=== PATIENT | male | born 1985 | race Caucasian/White ===

== ENCOUNTER 2017-12-22 12:57 | Emergency (ER) | payer SELFPAY ==
[2017-12-22] VITALS (36 sets, daily range): BP systolic 86–157; BP diastolic 61–87; PULSE 74–130; RESP 8–36; TEMP 36.7; O2SAT 96–100
--- NOTE | 2017-12-22 13:10 | DI.RPTCT_ITS ---
SYMPTOM/DIAGNOSIS: CHEST PAIN CTA THORAX: CT angiography was performed with multi slice acquisition and multi planar and 3D reconstruction. No pulmonary emboli or aortic dissection is seen. The lungs appear clear. No mass, pulmonary nodules or adenopathy is seen. The visualized portions of the upper abdomen are unremarkable. There are no suspicious bony abnormalities. IMPRESSION: Negative chest CT. No evidence of pulmonary emboli or other acute abnormality.
--- NOTE | 2017-12-22 13:11 | ED.GENADUL ---
Disposition Clinical Impression: Chest pain Disposition: HOME Condition: Stable Instructions: Chest Pain (ED) Additional Instructions: follow up with your primary care provider within 1 week if symptoms continue if you have worsening pain or trouble breathing return to the emergency department for reevaluation Medical Decision Making - Lab Data Results reviewed for labs ordered during visit: Yes - EKG Data -: EKG Interpreted by Me EKG shows normal: sinus rhythm, axis, intervals, QRS complexes, ST-T waves Rate: tachycardia When compared to previous EKG there are: no significant change 12/22/17 13:16 repol of anterior leads, sinus tachycardia 12/22/17 16:30 2nd ekg shows no acute changes - Radiology Data Radiology results: report reviewed, image reviewed - Medical Decision Making pt here with symptoms that could be due to anxiety given he does appear anxious but has no hx of this and no recent stressors per pt. No findings to suggest endocarditis and no fevers or ivdu. No evidence of dvt on exam and no hypoxia or pain with deep breaths so doubt PE. EKG shows no acute ischemic findings and has no radiation of pain or pain with exertion so doubt acs. Given acute onset of symptoms and feeling lightheaded with the tachcyardia, will obtain cta to eval for dissection and also send troponin to eval for acs pt's labs unremarkable as is imaging. Remains stable and he feels better now though still has tingling in his shoulders per pt. Will obtain delta troponin, given heart score is 0 if second troponin is negative feel he is appropriate for outpatient management pt sleeping on reexam, no distress, awaiting repeat lab and ekg ekg and troponin unremarkable on repeat, remains asymptomatic. Advised f/u with pcp and return precautions given - Differential Diagnosis dissection, anxiety, pe, pericardial effusion History of Present Illness - General Chief complaint: Chest Pain Stated complaint: chest pain/sob /disoriented Time Seen by Provider: 12/22/17 12:58 Source: patient Mode of arrival: ambulatory Limitations: no limitations - History of Present Illness Initial comments: 32 yo male who denies chronic medical problems comes in with cc of feeling disoriented, numb in the arms and chest burning. He states this started while driving about an hour or so ago and denies having these symptoms before. He states he drinks occasionally and had two beers earlier today, denies drug use. He is noted to have tachycardia to 120 with no significant ischemic findings on ekg, no focal neuro deficits, no murmurs on exam or stigmata of endocarditis noted on hand or feet exam. Complaint: lightheaded Onset/Timin -: hour(s) Location: chest Radiation: non-radiation Severity scale (1-10): 2 Quality: burning Consistency: constant Improves with: none Worsens with: none Associated Symptoms: other (lightheaded) Treatments Prior to Arrival: none - Related Data Unknown [No Known Home Meds] 12/22/17 Allergies Allergy/AdvReac Type Severity Reaction Status Date / Time No Known Allergies Allergy Unverified 12/22/17 13:05 Review of Systems Constitutional: denies: chills, fever Respiratory: denies: shortness of breath Cardiovascular: chest pain, palpitations. denies: edema, syncope Gastrointestinal: denies: abdominal pain, nausea, vomiting Musculoskeletal: denies: back pain Skin: denies: rash Neurological: denies: headache Comment: All other systems reviewed and negative Past Medical History - Past Medical History Medical history: no medical history - Social History Alcohol use: occasionally Drug use: none General Exam - General Limitations: no limitations General appearance: alert, anxious - Head Head exam: Present: atraumatic - Eye Eye exam: Present: normal apperance - ENT ENT exam: Present: mucous membranes moist - Neck Neck exam: Present: normal inspection - Respiratory Respiratory exam: Present: normal lung sounds bilaterally. Absent: respiratory distress - Cardiovascular Cardiovascular Exam: Present: normal rhythm, tachycardia, normal heart sounds - GI/Abdominal GI/Abdominal exam: Present: soft. Absent: tenderness - Extremities Exam Extremities exam: Present: normal inspection. Absent: pedal edema, calf tenderness - Neurological Exam Neurological exam: Present: alert, oriented X3, normal gait. Absent: motor sensory deficit - Psychiatric Psychiatric exam: Present: anxious - Skin Skin exam: Present: warm Course Vital Signs - 24 hr 12/22/17 13:03 Temperature 98.1 F Pulse 128 H Respiratory 14 Rate Blood Pressure 157/87 Pulse Oximetry 100
[2017-12-22 13:21] LABS: Abs Immature Grans 0.02 k/cumm (0.0-0.09); Absolute Basophil Count 0.05 k/cumm (0.0-0.2); Absolute Eosinophil Count 0.32 k/cumm (0.0-0.7); Absolute Lymphocyte Count 1.82 k/cumm (1.2-3.4); Absolute Monocyte Count 1.19 k/cumm (0.11-0.7); Absolute Neutrophil Count 5.49 k/cumm (1.2-6.7); Basophils % 0.6; Eosinophils % 3.6; HCT 44.8 % (40.0-50.0); HGB 15.6 g/dL (13.5-17.5); Immature Grans % 0.2; Lymphocytes % 20.5; Mean Corp. HGB Concentration 34.8 g/dL (32.0-36.0); Mean Corpuscular Hemoglobin 33.7 pg (27.0-33.0); Mean Corpuscular Volume 96.8 fL (80-95); Mean Platelet Volume 9.1 fL (8.0-11.0); Monocytes % 13.4; Neutrophils % 61.7; Platelet Count 422 x1000/uL (130-400); RBC 4.63 m/cumm (4.50-6.00); RBC Distribution Width 13.9 % (11.8-14.1); White Blood Cell Count 8.89 k/cumm (4.4-10.8)
[2017-12-22] MEDS: LORazepam 2 MG/ML VIAL 0.5 MG IVP (13:21)
[2017-12-22] MEDS: Normal Saline 1,000 ML 1000 ML IV (13:22)
[2017-12-22 13:34] LABS: PTT Activated 25.4 sec (21.0-31.4); Prothrombin Time 9.5 sec (9.3-10.8)
[2017-12-22 13:41] LABS: ALT 39 U/L (12-78); AST 29 U/L (15-37); Albumin 4.2 g/dL (3.4-5.0); Alkaline Phosphatase 73 U/L (46-116); Anion Gap 13.2 mmol/L (3-11); BUN 11 mg/dL (7-18); Bilirubin, Total 0.4 mg/dL (0.2-1.0); CO2 26.8 mmol/L (21.0-32.0); CREATININE 0.96 mg/dL (0.70-1.30); Calcium 8.7 mg/dL (8.5-10.1); Chloride 102 mmol/L (98-107); Glucose 97 mg/dL (70-100); Magnesium 1.8 mg/dL (1.8-2.4); Sodium 142 mmol/L (136-145)
[2017-12-22 13:46] LABS: Troponin I < 0.02 ng/mL (0.00-0.06)
[2017-12-22] MEDS: Omnipaque 350 MG/ML 100 ML BTL IJ (14:00)
--- NOTE | 2017-12-22 14:07 | DI.VRAD_ITS ---
EXAM: CT Angiography Chest With Intravenous Contrast CLINICAL HISTORY: 32 years old, male; Pain; Chest pain; Other: SOB /disoriiented TECHNIQUE: Axial computed tomographic angiography images of the chest with intravenous contrast using pulmonary embolism protocol. All CT scans at this facility use at least one of these dose optimization techniques: automated exposure control; mA and/or kV adjustment per patient size (includes targeted exams where dose is matched to clinical indication); or iterative reconstruction. 3D reconstructed images were created and reviewed. Coronal and sagittal reformatted images were created and reviewed. COMPARISON: No relevant prior studies available. FINDINGS: No evidence of PE. No significant focal consolidation. No pleural effusion. No pneumothorax. No adenopathy. Unremarkable upper abdomen. No acute mediastinal or aortic abnormality. IMPRESSION: No specific etiology identified for the patient's symptoms. Dictated and Authenticated by: Gianni Mena MD. Ordering:MATTHEW HUMPHREY MD
[2017-12-22 16:08] LABS: Troponin I < 0.02 ng/mL (0.00-0.06)
== END 2017-12-22 16:36 | disposition home or self-care (01) ==
LOC: ER 02-16 21:31
PROVIDERS: Emergency Provider Emergency Medicine; PCP General Practice
DX: R07.9 Chest pain, unspecified (principal); R00.0 Tachycardia, unspecified
CPT/HCPCS: 36415; 71275; 80053; 93005; 96361; 96374; 99285; 83735; 84484; 85025; 85610; 85730; 93010; J2060; J3490

== ENCOUNTER 2018-08-11 08:15 | Emergency (ER) | payer SELFPAY ==
[2018-08-11 08:19] VITALS: BP 133/83; PULSE 112; RESP 18; TEMP 36.7; O2SAT 99
--- NOTE | 2018-08-11 08:27 | DI.RAD_ITS ---
SYMPTOM/DIAGNOSIS: LACERATION LEFT THUMB: Three views. No acute fracture or dislocation is seen. There is a skin defect seen at the lateral aspect of the distal thumb. No radiopaque foreign bodies are seen in the soft tissues. IMPRESSION: No acute fracture or dislocation.
--- NOTE | 2018-08-11 08:28 | W.ED.GENAD ---
Discharge Plan Disposition Patient Disposition: HOME Condition: Improving Discharge Details Chief Complaint: Laceration Clinical Impression: Laceration of left thumb Primary Care Provider: Leo Madison ED Provider: Jeffrey Arellano Home Meds and New Rx's Prescriptions: New cephalexin 500 mg capsule 500 mg PO TID 3 Days Qty: 9 RF: 0 No Action No Known Home Meds RF: 0 Discharge Instructions Instructions: Laceration (ED) Additional Instructions: For your abrasions may apply topical antibiotic with once daily dressing change and gentle cleansing with soap and water. Leave the dressing of the thumb in place for 1 week's time, then remove and use a Band-Aid for an additional 1 week. Return if you develop a fever, redness, discharge from the wound or any other acute concerns. Take antibiotics as prescribed. Tylenol and/or ibuprofen as needed for pain Medical Decision Making 33-year-old male who lacerated his left thumb on glass in the home last night. He placed a Band-Aid and slept through the night, presents for evaluation this morning. Tetanus is up-to-date. His distal two-point discrimination is normal. There is a large laceration to the palmar aspect of the left thumb. Patient given Ativan, IV Kefzol and ketorolac. Referred for Xray and no evidence of underlying bony injury or foreign body. Discussed options for repair and patient declined local anesthesia and suture repair for primary closure. Repaired with Steri-Strips and tissue adhesive and he understands this will heal by secondary intention. I feel it is somewhat contaminated and patient placed on 3 days of Keflex. He is stable for discharge at this time. HPI General Mode of arrival: ambulatory. Date/Time Provider Initiated Documentation: 08/11/18 08:17. Limitations to Documentation: no limitations. Information obtained by: patient. History of Present Illness 33 year old M presents to the emergency department with the chief complaint of Left thumb laceration at 1130 last night, no numbness or weakness, described as mild, Quality is described as aching and dull, and is localized to the left and upper extremity. Patient reports no radiation. Patient started experiencing this hour(s) No relieving factors improve symptom(s), No exacerbating factors reported . Patient notes no other symptoms.. Patient did receive the following treatments prior to arrival, other (Band-Aid. Tetanus up-to-date last year) Related Data Home Medications Medication Instructions Recorded Confirmed Unknown [No Known Home Meds] 12/22/17 08/11/18 cephalexin 500 mg PO TID 3 Days #9 cap 08/11/18 Previous Rx's Medication Instructions Recorded cephalexin 500 mg PO TID 3 Days #9 cap 08/11/18 Allergies Allergy/AdvReac Type Severity Reaction Status Date / Time No Known Allergies Allergy Unverified 08/11/18 08:23 General Stated Complaint: Laceration DUSTIN: 4 Review of Systems Review of Systems No numbness, tingling, weakness. 6 systems reviewed and otherwise neg [facility] Social History Smoking/Tobacco Use Status: Former Tobacco Use Drug use: Never Do you feel safe at home: Yes Do you feel safe in your relationship?: Yes Exam Narrative Exam Narrative: GEN: awake, alert, oriented 3. Pleasant, well groomed, interactive, and. HEAD: Normocephalic, atraumatic ENT: Mucous membranes moist, oropharynx unremarkable, External ear exam unremarkable EYES: PERRL, EOMI NECK: Full ROM, no TRUDY, no menigismus ABDOMEN: Soft, nontender, no mass. +Bowel sounds EXT: Full ROM, no edema, no rash. 2+ Rad pulse bilateral. Left volar forearm abrasion at the wrist. There is a laceration on the palmar aspect of the thumb through the full-thickness of the dermis. Left thumb has distal two-point discrimination intact at approximately 1 cm. Nailbed is intact. Motor is 5 out of 5 in the bilateral upper extremity and sensation is intact otherwise Neuro: Grossly normal neurologic exam, conversant, interactive. Psych: Speech fluent, thoughts congruent, affect anxious Course Vital Signs Temperature 36.7 C 08/11/18 08:19 Pulse 112 H 08/11/18 08:19 Respiratory Rate 18 08/11/18 08:19 Blood Pressure 133/83 08/11/18 08:19 Pulse Oximetry 99 08/11/18 08:19 Temperature 36.7 C 08/11/18 08:19 Temperature Source Temporal Artery Scan 08/11/18 08:19 Pulse 112 H 08/11/18 08:19 Respiratory Rate 18 08/11/18 08:19 Respiratory Effort Non-Labored 08/11/18 08:21 Blood Pressure 133/83 08/11/18 08:19 Blood Pressure Position Sitting 08/11/18 08:19 Pulse Oximetry 99 08/11/18 08:19 Oxygen Delivery Method Room Air 08/11/18 08:19 Oxygen Flow Rate 0 08/11/18 08:19 Pain Level 0 08/11/18 08:19
--- NOTE | 2018-08-11 08:31 | ED.GENADUL_ITS ---
Discharge Plan Disposition Patient Disposition: HOME Condition: Improving Discharge Details Chief Complaint: Laceration Clinical Impression: Laceration of left thumb Primary Care Provider: Leo Madison ED Provider: Jeffrey Arellano Home Meds and New Rx's Prescriptions: New cephalexin 500 mg capsule 500 mg PO TID 3 Days Qty: 9 RF: 0 No Action No Known Home Meds RF: 0 Discharge Instructions Instructions: Laceration (ED) Additional Instructions: For your abrasions may apply topical antibiotic with once daily dressing change and gentle cleansing with soap and water. Leave the dressing of the thumb in place for 1 week's time, then remove and use a Band-Aid for an additional 1 week. Return if you develop a fever, redness, discharge from the wound or any other acute concerns. Take antibiotics as prescribed. Tylenol and/or ibuprofen as needed for pain Medical Decision Making 33-year-old male who lacerated his left thumb on glass in the home last night. He placed a Band-Aid and slept through the night, presents for evaluation this morning. Tetanus is up-to-date. His distal two-point discrimination is normal. There is a large laceration to the palmar aspect of the left thumb. Patient given Ativan, IV Kefzol and ketorolac. Referred for Xray and no eviden ce of underlying bony injury or foreign body. Discussed options for repair and patient declined local anesthesia and suture repair for primary closure. Repaired with Steri-Strips and tissue adhesive and he understands this will heal by secondary intention. I feel it is somewhat contaminated and patient placed on 3 days of Keflex. He is stable for discharge at this time. HPI General Mode of arrival: ambulatory . Date/Time Provider Initiated Documentation: 08/11/18 08:17 . Limitations to Documentation: no limitations . Information obtained by: patient . History of Present Illness 33 year old M presents to the emergency department with the chief complaint of Left thumb laceration at 1130 last night, no numbness or weakness, described as mild, Quality is described as aching and dull, and is localized to the left and upper extremity. Patient reports no radiation. Patient started experiencing this hour(s) No relieving factors improve symptom(s), No exacerbating factors reported . Patient notes no other symptoms.. Patient did receive the following treatments prior to arrival, other (Band-Aid. Tetanus up-to-date last year) Related Data Home Medications Medication Instructions Recorded Confirmed Unknown [No Known Home Meds] 12/22/17 08/11/18 cephalexin 500 mg PO TID 3 Days #9 cap 08/11/18 Previous Rx's Medication Instructions Recorded cephalexin 500 mg PO TID 3 Days #9 cap 08/11/18 Allergies Allergy/AdvReac Type Severity Reaction Status Date / Time No Known Allergies Allergy Unverified 08/11/18 08:23 General Stated Complaint: Laceration DUSTIN: 4 Review of Systems Review of Systems No numbness, tingling, weakness. 6 systems reviewed and otherwise neg [facility] Social History Smoking/Tobacco Use Status: Former Tobacco Use Drug use: Never Do you feel safe at home: Yes Do you feel safe in your relationship?: Yes Exam Narrative Exam Narrative: GEN: awake, alert, oriented 3. Pleasant, well groomed, in teractive, and. HEAD: Normocephalic, atraumatic ENT: Mucous membranes moist, oropharynx unremarkable, External ear exam unremarkable EYES: PERRL, EOMI NECK: Full ROM, no TRUDY, no menigismus ABDOMEN: Soft, nontender, no mass. +Bowel sounds EXT: Full ROM, no edema, no rash. 2+ Rad pulse bilateral. Left volar forearm abrasion at the wrist. There is a laceration on the palmar aspect of the thumb through the full-thickness of the dermis. Left thumb has distal two-point discrimination intact at approximately 1 cm. Nailbed is intact. Motor is 5 out of 5 in the bilateral upper extremity and sensation is intact otherwise Neuro: Grossly normal neurologic exam, conversant, interactive. Psych: Speech fluent, thoughts congruent, affect anxious Course Vital Signs Temperature 36.7 C 08/11/18 08:19 Pulse 112 H 08/11/18 08:19 Respiratory Rate 18 08/11/18 08:19 Blood Pressure 133/83 08/11/18 08:19 Pulse Oximetry 99 08/11/18 08:19 Temperature 36.7 C 08/11/18 08:19 Temperature Source Temporal Artery Scan 08/11/18 08:19 Pulse 112 H 08/11/18 08:19 Respiratory Rate 18 08/11/18 08:19 Respiratory Effort Non-Labored 08/11/18 08:21 Blood Pressure 133/83 08/11/18 08:19 Blood Pressure Position Sitting 08/11/18 08:19 Pulse Oximetry 99 08/11/18 08:19 Oxygen Delivery Method Room Air 08/11/18 08:19 Oxygen Flow Rate 0 08/11/18 08:19 Pain Level 0 08/11/18 08:19
[2018-08-11] MEDS: LORazepam 2 MG/ML VIAL 1 MG IVP (08:37)
[2018-08-11] MEDS: Ketorolac 30 MG/ML VIAL IVP (08:37)
--- NOTE | 2018-08-11 09:48 | DI.VRAD_ITS ---
EXAM: XR Left Finger(s), 2 or More Views EXAM DATE/TIME: 08/11/2018 9:15 AM CLINICAL HISTORY: 33 years old, male; Signs and symptoms; Other: Laceration; Additional info: Laceration , skin hanging on the lateral side , thumb get caught on the glass door. TECHNIQUE: Imaging protocol: XR Left finger minimum 2 views. COMPARISON: CR LEFT HAND COMPLETE 01/31/2013 8:49 AM FINDINGS: Bones/joints: No acute fracture. No dislocation. Soft tissues: Skin deformity adjacent to the distal first digit. No radiopaque foreign body. IMPRESSION: 1. Skin deformity adjacent to the distal first digit. No radiopaque foreign body. 2. No acute fracture. Dictated and Authenticated by: Keya Rutledge MD. Ordering:DEL Murphy MD
== END 2018-08-11 10:15 | disposition home or self-care (01) ==
PROVIDERS: Emergency Provider Emergency Medicine; PCP General Practice
DX: S61.012A Laceration without foreign body of left thumb without damage to nail, initial encounter (principal); W25.XXXA Contact with sharp glass, initial encounter
CPT/HCPCS: 96365; 96375; 99284; 73140; J1885; J2060

== ENCOUNTER 2019-05-14 17:12 | Emergency (ER) | payer SELFPAY | END 2019-05-15 12:00 | disposition home or self-care (01) | LOC: ER 05-15 12:00 | PROVIDERS: PCP General Practice | DX: R69 Illness, unspecified (principal) ==

== ENCOUNTER 2020-06-26 13:31 | Emergency (ER) | payer MEDICAID, SELFPAY ==
[2020-06-26 13:36] VITALS: BP 140/72; PULSE 99; RESP 16; TEMP 36.7; O2SAT 100
--- NOTE | 2020-06-26 13:38 | ED.GENADUL_ITS ---
Discharge Plan Disposition Patient Disposition: HOME Condition: Stable Discharge Details Clinical Impression: Kidney stone, Hydrocele Primary Care Provider: Katerina,Local ED Provider: Analia Weber Home Meds and New Rx's Prescriptions: New tamsulosin [Flomax] 0.4 mg capsule 0.4 mg PO DAILY Qty: 10 RF: 0 Continued ibuprofen 200 mg Capsule 400 mg PO PRN PRNRF: 0 Discharge Instructions Instructions: Kidney Stones (ED) Additional Instructions: Under imaging today, were noted to have multiple nonobstructing kidney stones. These should pass naturally. Please use the Flexeril as prescribed to help with passage of the stone. Please take this once per day and stop once her stones passed. Also noted to have a hydrocele on your ultrasound of the left testicle, likely, the stone is was causing majority of your pain. If you develop fever/chills, increased pain, difficulty urinating, vomiting or other new/worsening symptoms please seek care urgently once again. Please strain your urine as directed by nursing staff to catch stone. Referral to urology as well as helping establish primary care has been sent. Discharge Data Discharge Date/Time-TO BE ENTERED AT DEPARTURE: 06/26/20 16:45 Medical Decision Making Patient is a pleasant 35-year-old gentleman presenting today with chief complaint of left testicular and left flank pain. He reports the pain in the left flank began when he first woke this morning. States that subsequently he developed a sudden onset of left-sided testicular pain. He feels that the testicular pain is radiating up into the back. He denies any change in urination. No fevers or chills. Has not had any penile discharge. No new sexual partners. He has not had pain like this historically. No previous testicular surgeries. Denies any change in bowel habits. No fevers or chills. No nausea or vomiting. On exam, patient appears uncomfortable. He appears nontoxic. He does not have any pain with percussion over the CVA area does indicate left CVA is area of discomfort. Patient notes left testicular swelling. I did not appreciate any objective swelling on exam. Left testicle right slightly lower than the right. He has normal cremasteric reflex on affected side. No erythema or warmth. No rash. No notable hernia. Based on the sudden onset and subjective testicular swelling, I am concerned for potential spicular torsion. Plan for testicular ultrasound. The radiation of pain also has been considering a kidney stone. Less likely to be a bacterial urinary tract infection. However, I have considered epididymitis potential STI. Plan for ultrasound and labs. Discussed this plan with the patient who is in agreement. Labs reviewed. No leukocytosis. Stable H&H. CMP without significant abnormality. Urine unremarkable. His GC and Chlamydia testing are pending. FINDINGS: Right testicle: Normal. Measures 4.7 x 2.4 x 3.1 cm. No mass. No torsion. Normal vascular flow. Left testicle: Normal. Measures 4.8 x 2.6 x 3.3 cm. No mass. No torsion. Normal vascular flow. Epididymides: Left epididymal head cyst measures 3 mm. Scrotum: Left hydrocele measures 2.1 x 0.8 x 3.6 cm. IMPRESSION: 1. Left epididymal head cyst measures 3 mm. 2. Left hydrocele measures 2.1 x 0.8 x 3.6 cm FINDINGS: Right kidney: Normal. Measures 11.5 x 4.1 x 5.5 cm. No stones. No hydronephrosis. Left kidney: Measures 11.9 x 6.1 x 4.8 cm. Multiple non-obstructing renal calculi on the left, largest measures 4 mm. No hydronephrosis. Urinary bladder: Unremarkable. Ureteral jets visualized bilaterally. IMPRESSION: Multiple non-obstructing renal calculi on the left, largest measures 4 mm. No hydronephrosis. Discussed the findings with the patient. I feel that the nephrolithiasis is likely what is more contributing to his discomfort at this time. Need to discuss this with the patient. He has been under stress recently and there is concern that he may not have been drinking enough water leading to issue today. I do not see any evidence of infected stone either clinically or in patient's urine.?Patient is resting comfortably. We will give Toradol prior to discharge. We will begin the patient on Flomax to assist with the passage of stone. I encourage water intake. I will refer him to urology for both his nephrolithiasis as well as his hydrocele. Patient does not have a local primary care and I have asked the care management team to assist in establishing local primary care. Return precautions were discussed. All his questions and concerns were addressed and he is in agreement with this plan. We will call him with any positive results from GC/chlamydia including a testing. HPI General Mode of arrival: ambulatory . Date/Time Provider Initiated Documentation: 06/26/20 13:38 . Limitations to Documentation: no limitations . Information obtained by: patient and RN notes reviewed . History of Present Illness 35 year old M presents to the emergency department with the chief complaint of left flank and left testicular pain, described as moderate, with intensity rated at 5. Quality is described as sharp, and is localized to the genitals and left. Patient reports radiation to back. Patient started experiencing this hour(s) (woke with pain this morning) and it has been constant. Immobilization improves symptom(s), (worse when laying flat) Movement worsens symptoms . Patient notes no other symptoms.; denies diaphoresis, fever/chills, loss of appetite and nausea/vomiting. Patient did receive the following treatments prior to arrival, none Related Data Home Medications Medication Instructions Recorded Confirmed ibuprofen 400 mg PO PRN PRN 06/26/20 06/26/20 tamsulosin [Flomax] 0.4 mg PO DAILY #10 cap 06/26/20 Previous Rx's Medication Instructions Recorded tamsulosin [Flomax] 0.4 mg PO DAILY #10 cap 06/26/20 Allergies Allergy/AdvReac Type Severity Reaction Status Date / Time No Known Allergies Allergy Unverified 08/11/18 08:23 General DUSTIN: 4 Review of Systems Constitutional Constitutional: Reports as per HPI, Denies chills, Denies fever(s) and Denies poor appetite Cardiovascular Cardiovascular: Denies chest pain Respiratory Respiratory: Denies cough Gastrointestinal Gastrointestinal: Denies abdominal pain, Denies change in bowel habits, Denies nausea and Denies vomiting Genitourinary Genitourinary: Reports as per HPI Musculoskeletal Musculoskeletal: Reports as per HPI and Reports back pain (flank pain) Integumentary/Breasts Skin/Breast: Reports as per HPI and Denies rash [facility] Social History Smoking/Tobacco Use Status: Former Tobacco Use Smoking risk assessment performed?: Yes Drug use: Never Do you feel safe at home: Yes Do you feel safe in your relationship?: Yes Exam Const General: cooperative, healthy appearing, uncomfortable, no acute distress, well developed and well groomed Nutritional Appearance: average body habitus and well nourished Orientation: alert and awake Resp Effort & Inspection: normal respiratory effort and no respiratory distress Auscultation: clear to auscultation bilaterally, no rales, no rhonchi and no wheezes Cardio Rate: regular rate Rhythm: regular rhythm Heart Sounds: S1 normal and S2 normal GI Inspection: normal to inspection Palpation: soft, no hepatosplenomegaly, not firm, no guarding, not rigid and nontender Male General Exam: Yes normal external exam, No edema, No erythema, No hernia, No inguinal lymphadenopathy and No lesions Penis: normal penis Scrotum: scrotum normal, cremasteric reflex present, no ecchymosis, not edematous, not erythematous, no hydroceles, no inguinal hernias, no masses and no scrotal swelling (patient feels that left side is swollen, none noted on exam) Testes: normal (left teste rides slightly lower than right), testicular lie normal, no blue dot sign, not enlarged, no epididymal induration, no epidiymal masses, epididymal tenderness on the left, no masses, no testicular mass, no testicular swelling, testicular tenderness on the left and normal testicular lie Back/Spine/Pelvis Back: no CVA tenderness (indicates left CVA as area of pain but none elicited with percussion) Skin General skin exam: no rashes or lesions noted Trauma: no lacerations or abrasions Neuro General: patient alert and patient awake Cognition: normal cognition Speech: speech normal Gait: normal gait Psych Appearance: grossly normal and well kempt Mental Status: mental status grossly normal Speech and Movement: speech and movement normal
--- NOTE | 2020-06-26 13:45 | DI.US_ITS ---
EXAM: US SCROTUM CLINICAL HISTORY: sudden onset L testicular pain and swelling TECHNIQUE: Ultrasound of the testes performed using grayscale, color, and Doppler imaging. COMPARISON: US US RENAL from 06/26/2020 FINDINGS: RIGHT HEMISCROTUM: The right testicle exhibits normal size and echo architecture with no evidence of intratesticular mas s. Vascular flow was demonstrated within the right testicle, including arterial waveforms. The epididymis appears unremarkable. There are no epididymal head cysts. There is no ipsilateral hydrocele nor varicocele. LEFT HEMISCROTUM: The left testicle exhibits normal size and echo architecture with no evidence of intratesticular mass . Vascular flow is demonstrated within the left testicle, including arterial waveforms. There is a small 2-3 millimeter cyst in the left epididymal head. Small left hydrocele IMPRESSION: 1. No evidence of testicular mass nor testicular torsion. 2. Small left hydrocele evident 3. No varicoceles evident Tiny epididymal head cyst on the left side. DATA REPOSITORY:
--- NOTE | 2020-06-26 13:45 | DI.US_ITS ---
EXAM: US RENAL CLINICAL HISTORY: left flank pain TECHNIQUE: Ultrasound of both kidneys performed using standard protocol. COMPARISON: No exams were available for comparison FINDINGS: RIGHT KIDNEY: Measures 11.5 cm in length. No cysts evident. Normal cortical thickness and corticomedullary differen tiation .No solid masses No intrarenal calculi nor hydronephrosis. LEFT KIDNEY: Measures 11.9 cm in length. No cysts evident. Normal cortical thickness and corticomedullary differe ntiaion. No solids masses. There are few small nonobstructive hyperechoic foci-probable calculi in l eft kidney, the largest measuring 3-4 millimeters. There is no hydronephrosis. No perinephric fluid . URINARY BLADDER: Prevoid volume is 20 cc No evidence of obvious bladder mass nor diverticuli. Ureterovesical jets: Both identified. IMPRESSION: 1. No significant ultrasound findings in the right kidney 2. Small nonobstructive calculi in left kidney. No hydronephrosis Bladder is difficult to evaluate because only contains 20 cc. DATA REPOSITORY:
[2020-06-26] MEDS: Normal Saline Flush 10 ML SYR IVP (13:55)
[2020-06-26 14:04] LABS: Abs Immature Grans 0.04 10^3/uL (0.0-0.06); Absolute Basophil Count 0.05 10^3/uL (0.0-0.2); Absolute Eosinophil Count 0.15 10^3/uL (0.0-0.7); Absolute Lymphocyte Count 2.49 10^3/uL (1.2-3.4); Absolute Monocyte Count 0.91 10^3/uL (0.1-0.8); Absolute Neutrophil Count 5.51 10^3/uL (1.2-6.7); Basophils % 0.5; Eosinophils % 1.6; HCT 44.5 % (40.0-50.0); Immature Grans % 0.4; Lymphocytes % 27.2; MCH 32.4 pg (27.0-33.0); MCHC 33.7 % (32.0-36.0); MCV 96.1 fL (80-95); MPV 9.1 fL (8.0-11.0); Monocytes % 9.9; Neutrophils % 60.4; Nucleated RBC 0 %; Platelet Count 398 10^3/uL (130-400); RBC 4.63 10^6/uL (4.36-5.78); RDW 12.7 % (11.8-14.1); RDW-SD 45.6 fL; WBC 9.15 10^3/uL (4.4-10.8)
[2020-06-26] MEDS: Lactated Ringers 1,000 ML 1000 ML IV (14:17)
[2020-06-26 14:18] LABS: ALT 27 U/L (16-63); AST 17 U/L (15-37); Albumin 3.8 g/dL (3.4-5.0); Alkaline Phosphatase 70 U/L (46-116); Anion Gap 7.1 mmol/L (3-11); BUN 13 mg/dL (7-18); Bilirubin, Total 0.2 mg/dL (0.2-1.0); CO2 28.9 mmol/L (21.0-32.0); CREATININE 0.9 mg/dL (0.70-1.30); Calcium 8.3 mg/dL (8.5-10.1); Chloride 104 mmol/L (98-107); Glucose 113 mg/dL (74-106); Potassium 4.4 mmol/L (3.5-5.1); Sodium 140 mmol/L (136-145); Total Protein 7.4 g/dL (6.4-8.2)
[2020-06-26 14:23] LABS: Bilirubin Negative (Negative); Blood Negative (Negative); Clarity Cloudy (Clear); Glucose Negative (Negative); Ketones Negative (Negative); Leukocyte Esterase Negative (Negative); Nitrite Negative (Negative); Specific Gravity 1.025 (1.005-1.025); Urobilinogen 0.2 EU/dL (Up TO 0.2)
--- NOTE | 2020-06-26 15:21 | DI.VRAD_ITS ---
PROCEDURE INFORMATION: Exam: US Retroperitoneal; Complete; Kidneys and Bladder Exam date and time: 06/26/2020 3:03 PM Age: 35 years old Clinical indication: Patient HX: Left flank pain since this morning. TECHNIQUE: Imaging protocol: Real-time ultrasound of the retroperitoneum with image documentation. Complete exam focused on the kidneys and bladder. COMPARISON: No relevant prior studies available. FINDINGS: Right kidney: Normal. Measures 11.5 x 4.1 x 5.5 cm. No stones. No hydronephrosis. Left kidney: Measures 11.9 x 6.1 x 4.8 cm. Multiple non-obstructing renal calculi on the left, largest measures 4 mm. No hydronephrosis. Urinary bladder: Unremarkable. Ureteral jets visualized bilaterally. IMPRESSION: Multiple non-obstructing renal calculi on the left, largest measures 4 mm. No hydronephrosis. Dictated and Authenticated by: Keya Rutledge MD. Ordering:JULIENNE Helms MD
--- NOTE | 2020-06-26 15:42 | DI.VRAD_ITS ---
PROCEDURE INFORMATION: Exam: US Scrotum Exam date and time: 06/26/2020 1:55 PM Age: 35 years old Clinical indication: Patient HX: Left groin pain since this morning. Left flank pain as well. TECHNIQUE: Imaging protocol: Real-time ultrasound of the scrotum and contents with color Doppler and image documentation. COMPARISON: No relevant prior studies available. FINDINGS: Right testicle: Normal. Measures 4.7 x 2.4 x 3.1 cm. No mass. No torsion. Normal vascular flow. Left testicle: Normal. Measures 4.8 x 2.6 x 3.3 cm. No mass. No torsion. Normal vascular flow. Epididymides: Left epididymal head cyst measures 3 mm. Scrotum: Left hydrocele measures 2.1 x 0.8 x 3.6 cm. IMPRESSION: 1. Left epididymal head cyst measures 3 mm. 2. Left hydrocele measures 2.1 x 0.8 x 3.6 cm. Dictated and Authenticated by: Keya Rutledge MD. Ordering:JULIENNE Hemls MD
--- NOTE | 2020-06-26 16:24 | NUR.NOTE ---
Nursing Note: Referral faxed to [facility] Urology for follow up for kidney stones/hydrocele. Referral to Care Management to establish care with PCP. Marilynn Tolliver
[2020-06-26] MEDS: Ketorolac 30 MG/ML VIAL IVP (16:34)
[2020-06-26 16:35] VITALS: BP 118/57; PULSE 70; RESP 16; O2SAT 98
--- NOTE | 2020-06-28 09:02 | PDOC.ERCMPRO ---
- If Service Date Differs Date of service: 06/28/20 Time of Service: 09:02 Care Management Progress Note Abdirashid is seen in the ED on 06/26/20 for a kidney stone. At the request of ED provider, CM coordinates a referral to Monique Freitas of [facility], on-call provider, to assist Abdirashid in establishing care with a PCP. A referral was also sent to [facility] Urology by the ED.
[2020-06-28 15:29] LABS: Chlamydia Result Positive (Negative); GC Result Negative (Negative)
--- NOTE | 2020-07-01 09:57 | W.ED.FU ---
Pt called and 3 voicemails left this week on his number listed regarding his positive chlamydia result. He returned a phone call to the ED today. He was overall feeling better but still having some symptoms. A prescription for doxycycline 100 mg 1 tab p.o. twice daily x7 days, #14, called into [facility] in [place].
--- NOTE | 2020-07-01 10:27 | NUR.NOTE ---
Addendum entered by Marilynn Tolliver 07/01/20 12:07: Patient returned call. Dr. Mosher spoke with him. [facility] PO BID X 7days, dispense 14, no refills. Marilynn Tolliver Original Note: Nursing Note: Providers unable to notify patient of chlamydia/GC results. Lab results mailed to patient. Marilynn Tolliver
== END 2020-06-26 16:45 | disposition home or self-care (01) ==
PROVIDERS: Emergency Provider Physician Assistant
DX: N20.0 Calculus of kidney (principal); N43.3 Hydrocele, unspecified
CPT/HCPCS: 76770; 80053; 87491; 87591; 96361; 96374; 99285; 76870; 81003; 85025; 99284; J1885

== ENCOUNTER 2021-05-13 08:26 | Outpatient (REF) | payer MEDICAID, SELFPAY ==
[2021-05-13 14:50] LABS: Anion Gap 7.1 mmol/L (3-11); BUN 24 mg/dL (7-18); CO2 28.9 mmol/L (21.0-32.0); Calcium 9.3 mg/dL (8.5-10.1); Calculated LDL 98 mg/dL (<100); Chloride 103 mmol/L (98-107); Cholesterol 161 mg/dL (<200); Glucose 99 mg/dL (74-106); HDL Cholesterol 52 mg/dL (40-60); Potassium 4.5 mmol/L (3.5-5.1); Sodium 139 mmol/L (136-145); Triglyceride 55 mg/dL (<150)
== END 2021-05-13 08:27 | disposition home or self-care (01) ==
LOC: NCHCN 08:26
PROVIDERS: PCP Physician Assistant; Visit Provider Physician Assistant
DX: Z13.220 Encounter for screening for lipoid disorders (principal); Z13.228 Encounter for screening for other metabolic disorders
CPT/HCPCS: 80048; 80061

== ENCOUNTER 2022-01-01 18:57 | Emergency (ER) | payer MEDICAID, SELFPAY ==
[2022-01-01 19:04] VITALS: BP 121/69; PULSE 102; RESP 18; TEMP 36.9; O2SAT 96
--- NOTE | 2022-01-01 19:38 | W.ED.GENAD ---
Discharge Plan Disposition Patient Disposition: HOME Condition: Stable Discharge Details Clinical Impression: Contact dermatitis Primary Care Provider: Rommel Clarke ED Provider: Anival Liz Home Meds and New Rx's Prescriptions: New prednisone 20 mg tablet See Taper PO DAILY Qty: 33 0RF Taper: Prednisone 20mg taper 60 mg Daily for 5 Days and 0 Hour 40 mg Daily for 5 Days and 0 Hour 20 mg Daily for 5 Days and 0 Hour 10 mg Daily for 5 Days and 0 Hour Rx Instructions: TAPER: 60 mg daily for 5 Days; 40 mg daily for 5 Days; 20 mg daily for 5 Days; 10 mg daily for 5 Days Held ibuprofen 200 mg Capsule 400 mg PO PRN PRN Hold Instructions: Until Steroids are completed Discharge Instructions Instructions: Lyssa Jc (ED) Additional Instructions: Take medication as prescribed and if you any side effects you may stop the medication if less than 4 days, otherwise you will need to complete taper dose to avoid serious side effects. If you have any new or worsening symptoms feel free to return the emergency department for reassessment or follow-up with your primary care provider if not seeing improvement in the next week. Referrals: Rommel Clarke [Primary Care Provider] - Discharge Data Discharge Date/Time-TO BE ENTERED AT DEPARTURE: 01/01/22 19:53 Medical Decision Making Patient presenting to the emergency department for reports complaint of rash. Patient denies all other symptoms. Physical exam is consistent with contact dermatitis but it is diffuse throughout the lower extremities, trunk, upper extremities and even on face. Patient has no signs of anaphylactoid reaction, secondary infection or life-threatening illness. Patient placed upon oral steroids due to diffuse nature of rash and return and follow-up precautions were discussed. After discussion of diagnosis and plan of care patient has no further needs, questions, or concerns and states clear understanding to return to the emergency department for any worsening symptoms. This documentation was generated using [employer] system, please disregard any oddities of phrase or misspellings. HPI General Mode of arrival: ambulatory. Date/Time Provider Initiated Documentation: 01/01/22 19:37. Limitations to Documentation: no limitations. Information obtained by: patient and RN notes reviewed. History of Present Illness 36 year old M presents to the emergency department with the chief complaint of itchy rash, described as severe and similar to prior episodes, Quality is described as other (itching), and is localized to the face, chest, back, pelvis, buttocks, upper extremity and lower extremity. Patient started experiencing this day(s) (1) and it has been constant. No relieving factors improve symptom(s), Other factors that worsen symptoms (Contact with poison wil) . Patient notes no other symptoms.. Patient did receive the following treatments prior to arrival, other (OTC creams) Related Data Home Medications Medication Instructions Recorded Confirmed ibuprofen 200 mg capsule 400 mg PO PRN PRN 06/26/20 01/01/22 prednisone 20 mg tablet See Taper PO DAILY #33 tabs 01/01/22 Previous Rx's Medication Instructions Recorded prednisone 20 mg tablet See Taper PO DAILY #33 tabs 01/01/22 Allergies Allergy/AdvReac Type Severity Reaction Status Date / Time No Known Allergies Allergy Unverified 01/01/22 19:06 General Stated Complaint: RashLesion DUSTIN: 5 Review of Systems Narrative: 6 systems reviewed and unremarkable except what is marked below. Constitutional Constitutional: Denies chills and Denies fever(s) ENT Ears, Nose, Mouth, and Throat: Denies lip swelling, Denies odynophagia, Denies throat swelling and Denies tongue swelling Cardiovascular Cardiovascular: Denies dyspnea Respiratory Respiratory: Denies dyspnea, Denies stridor and Denies wheezing Gastrointestinal Gastrointestinal: Denies odynophagia Integumentary/Breasts Skin/Breast: Reports as per HPI, Reports pruritus and Reports rash Allergic/Immunologic Allergic/Immunologic: Denies lip swelling, Denies throat swelling, Denies tongue swelling and Denies wheezing PFSH All Active Problems Contact dermatitis (Acute) Hydrocele (Acute) Social History Smoking/Tobacco Use Status: Former Tobacco Use Smoking risk assessment performed?: Yes Drug use: Never Substance use type: does not use Do you feel safe at home: Yes Do you feel safe in your relationship?: Yes Exam Const General: cooperative, no acute distress and not ill appearing Orientation: alert, awake and oriented x3 HENMT Mouth: oral mucosae normal, lip normal, tongue normal and moist mucous membranes Throat: posterior oropharynx normal Resp Effort & Inspection: normal respiratory effort, able to speak in complete sentences and no respiratory distress Auscultation: clear to auscultation bilaterally Cardio Rate: regular rate Rhythm: regular rhythm Heart Sounds: S1 normal and S2 normal Skin Rashes: rashes noted papules diffuse multiple locations arrangement clustered and surface erythematous; fluctuant not assessed Neuro General: patient alert, patient awake, patient oriented x3, moves all extremities and no focal motor deficits Sensory Exam: no sensory deficits noted Course Vital Signs Vital signs: Vital Signs Temperature 36.9 C 01/01/22 19:04 Pulse 102 H 01/01/22 19:04 Respiratory Rate 18 01/01/22 19:04 Blood Pressure 121/69 01/01/22 19:04 Pulse Oximetry 96 01/01/22 19:04 Temperature 36.9 C 01/01/22 19:04 Temperature Source Skin 01/01/22 19:04 Pulse 102 H 01/01/22 19:04 Respiratory Rate 18 01/01/22 19:04 Respiratory Effort Non-Labored 01/01/22 19:07 Blood Pressure 121/69 01/01/22 19:04 Pulse Oximetry 96 01/01/22 19:04 Pain Level 6 01/01/22 19:04 PAWSS Have you Been Recently Intoxicated or Drunk Within the Last 30 days?: No Have you Ever Experienced Previous Episodes of Alcohol Withdrawal?: No Have you ever Experienced Withdrawal Seizures?: No Have you ever Experienced Delirium Tremens(DT)s?: No Have you ever undergone Alcohol Rehabilitation Treatment (i.e, inpt ot outpatient treatment programs)?: No Have you ever Experienced Blackouts?: No Have you ever Combined Alcohol with other Downers within the last 90 days?: No Have you ever Combined Alcohol with any other Substance of Abuse during the last 90 days?: No Positive Blood Alcohol level on Presentation? [PCS.BAL]: No Evidence of Increased Autonomic Activity (i.e. HR>120, tremor, sweating, agitation, nausea)?: No Result: 0
[2022-01-01] MEDS: predniSONE 20 MG TAB 60 MG PO (19:53)
== END 2022-01-01 19:53 | disposition home or self-care (01) ==
PROVIDERS: Emergency Provider Nurse Practitioner Family; PCP Physician Assistant
DX: L25.9 Unspecified contact dermatitis, unspecified cause (principal); Z87.891 Personal history of nicotine dependence
CPT/HCPCS: 99283; 99284; J7512

== ENCOUNTER 2022-11-04 11:58 | Emergency (ER) | payer MEDICAID, SELFPAY ==
[2022-11-04] VITALS (23 sets, daily range): BP systolic 92–126; BP diastolic 51–72; PULSE 74–97; RESP 12–20; TEMP 36.5; O2SAT 94–99
--- NOTE | 2022-11-04 12:00 | RT.EKG_ITS ---
APPROVED REPORT Exam: Resting ECG Reason for Exam: SOB Patient Location: E HR:80 bpm ECG Measurements Heart Rate 80 AXIS NJ 148 P 49 QRSd 87 QRS 52 QT 355 T 51 QTc 412 Conclusion Sinus rhythm...normal P axis, V-rate 60- 99
--- NOTE | 2022-11-04 12:15 | DI.CT_ITS ---
Exam(s) CT CHEST PE CTA EXAM: CT CHEST PE CTA CLINICAL HISTORY: shortness of breath. TECHNIQUE: Imaging Protocol: Axial CT angiography was performed with multi-slice acquisition and mu lti-planar and/or 3D reconstructions. CONTRAST MATERIAL: Intravenous: Omnipaque 350 contrast volume:100 mL FINDINGS: Tracheobronchial tree: Patent where visualized. Pulmonary parenchyma: No consolidation or dominant measurable mass. No architectural distortion. Pulmonary Arteries: No evidence of filling defect to suggest pulmonary emboli. Mediastinum and Cristel: No dominant adenopathy or fluid collection. The esophagus is unremarkable. Visualized thyroid gland: Unremarkable. Pleura: No effusion or pneumothorax. Heart: The heart is not dilated. No coronary artery calcifications are seen. No pericardial effusion. Aorta: Thoracic aorta non-dilated. No evidence of dissection. Upper abdomen: Unremarkable. Soft tissues: Unremarkable. Bones: Within normal limits for the patient's age. IMPRESSION: No evidence of pulmonary embolism, thoracic aortic dissection or aneurysm. RADIATION DOSE DELIVERED: 344.48mGy.cm Total DLP DATA REPOSITORY: All CT scans at this facility are submitted to the National Radiology Data Registry (NRDR) Dose Index Registry (DIR) with the [employer] (ACR). RADIATION OPTIMIZATION: All CT scans at this facility use at least one of these dose optimization te chniques: automated exposure control; mA and/or kV adjustment per patient size (includes targeted exa ms where dose is matched to clinical indication); or iterative reconstruction.
--- NOTE | 2022-11-04 12:20 | ED.GENADUL_ITS ---
Discharge Plan Disposition Patient Disposition: Home Condition: Stable Discharge Details Clinical Impression: Shortness of breath Primary Care Provider: Rommel Clarke ED Provider: Aleks Anaya Home Meds and New Rx's Prescriptions: Continued ibuprofen 200 mg Capsule 400 mg PO PRN PRN Hold Instructions: Until Steroids are completed Discontinued prednisone 20 mg tablet See Taper PO DAILY Qty: 33 0RF Taper: Prednisone 20mg taper 60 mg Daily for 5 Days and 0 Hour 40 mg Daily for 5 Days and 0 Hour 20 mg Daily for 5 Days and 0 Hour 10 mg Daily for 5 Days and 0 Hour Patient Comments: not taking Rx Instructions: TAPER: 60 mg daily for 5 Days; 40 mg daily for 5 Days; 20 mg daily for 5 Days; 10 mg daily for 5 Days Discharge Instructions Additional Instructions: Your ekg, vital signs, lab work and cat scan did not show concerning findings Follow up with your primary care provider within 1-2 weeks especially if symptoms continue if you feel more ill, have severe worsening symptoms or severe pain return to the emergency department Medical Decision Making 37 yo male who denies chronic medical problems, former smoker, who comes in with feeling lightheaded and short of breath for 3 days, no fevers, no chills, no chest pain. He arrives hemodynamically stable, is speaking in full sentences and appears anxious. He has clear lung sounds, no murmurs, no jvd or leg swelling. POCUS without concerning findings, normal appearing ef and no b lines on lung u/s. Suspect anxiety, will treat with ativan and evaluate for other causes of his symptoms with ekg/troponin, cbc, cmp, and cta to evaluate for PE labs and imaging unremarkable, stable vitals, o2 sat 100% on room air. He is sleeping in no distress and awakens easily to voice, states he feels better. Giving reassuring work up and good response to ativan with stable vitals feel he is stable for d/c and can f/u with pcp, return precautions given. Suspect this is primarily anxiety causing his symptoms. Differential Diagnosis Differential Diagnosis: anxiety, pe, anemia Imaging Data Radiologic Study: Attestation: I personally reviewed and interpreted this imaging study as follows: Imaging: CT Scan Radiologist's impression: no acute findings Lab Data Lab results reviewed: Yes I reviewed the patient's lab results. ECG Data Attestation: I personally reviewed and interpreted this ECG (s) as follows: Prior ECG tracings: not available for review Interpretation: sinus rate of 80 pr 148 no stemi HPI General Mode of arrival: ambulatory . Date/Time Provider Initiated Documentation: 11/04/22 11:58 . Limitations to Documentation: no limitations . Information obtained by: patient . History of Present Illness 37 year old M presents to the emergency department with the chief complaint of shortness of breath, described as moderate, Patient started experiencing this day(s) (3) and it has been constant. No relieving factors improve symptom(s), No exacerbating factors reported . Patient notes denies chest pain, cough and fever/chills. Patient did receive the following treatments prior to arrival, none Related Data Home Medications Medication Instructions Recorded Confirmed ibuprofen 200 mg capsule 400 mg PO PRN PRN 06/26/20 11/04/22 Allergies Allergy/AdvReac Type Severity Reaction Status Date / Time No Known Allergies Allergy Unverified 11/04/22 12:11 General Stated Complaint: SOB DUSTIN: 3 Review of Systems All systems reviewed & are unremarkable except as noted in HPI and below Constitutional Constitutional: Denies chills, Denies fever(s) and Denies weakness Cardiovascular Cardiovascular: Denies chest pain Respiratory Respiratory: Denies cough Gastrointestinal Gastrointestinal: Denies abdominal pain, Denies nausea and Denies vomiting Musculoskeletal Musculoskeletal: Denies joint swelling Integumentary/Breasts Skin/Breast: Denies rash Neurologic Neurologic: Denies weakness Psychiatric Psychiatric: Denies depression PFSH All Active Problems (Updated 11/04/22 @ 14:04 by Aleks Anaya MD) Shortness of breath (Acute) Hydrocele (Acute) Social History Smoking/Tobacco Use Status: Former Tobacco Use Smoking risk assessment performed?: Yes Drug use: Never Substance use type: marijuana Details: Smoke weed every day Do you feel safe at home: Yes Do you feel safe in your relationship?: Yes Exam Const General: anxious Orientation: alert HENMT Head: normal to inspection Ears: external ears normal General nose exam: external nose normal Mouth: moist mucous membranes Eyes General: appearance normal, both eyes and all related structures Neck Neck: normal visual inspection Resp Effort & Inspection: normal respiratory effort and able to speak in complete sentences Auscultation: clear to auscultation bilaterally Cardio Jugular venous pressure: no JVD Rate: regular rate Heart Sounds: no murmurs Skin General skin exam: no rashes or lesions noted Neuro General: patient alert and patient oriented x3 Extrem General: normal to inspection Psych Mental Status: mental status grossly normal Course Vital Signs Vital signs: Vital Signs Temperature 36.5 C 11/04/22 12:04 Pulse 97 H 11/04/22 12:04 Respiratory Rate 20 11/04/22 12:04 Blood Pressure 123/70 11/04/22 12:04 Pulse Oximetry 99 11/04/22 12:04 Temperature 36.5 C 11/04/22 12:04 Pulse 97 H 11/04/22 12:04 Respiratory Rate 20 11/04/22 12:04 Respiratory Effort Normal 11/04/22 12:08 Blood Pressure 123/70 11/04/22 12:04 Pulse Oximetry 99 11/04/22 12:04 Oxygen Delivery Method Room Air 11/04/22 12:04 Oxygen Flow Rate 0 11/04/22 12:04 POCUS Exam (ED) Limited Cardiac Exam DATE OF EXAM: 11/04/22 TIME OF EXAM: 12:26 PROVIDER THAT PERFORMED THE STUDY: Aleks Anaya REASON FOR EXAM: Dyspnea VISUALIZED STRUCTURES: Left ventricle and Right ventricle VIEW OBTAINED: Parasternal long-axis PERTINENT FINDINGS/IMPRESSION: No LV dysfunction, No pericardial effusion and No RV dilation Exam complete Limited Thoracic Lung Exam DATE OF EXAM: 11/04/22 TIME OF EXAM: 12:26 PROVIDER THAT PERFORMED THE STUDY: Aleks Anaya REASON FOR EXAM: Shortness ofBreath VISUALIZED STRUCTURES: right anterior and left anterior PERTINENT FINDINGS/IMPRESSION: No apparent abnormalities; no B-Lines/left side and no B-lines/left side Exam complete
[2022-11-04 12:29] LABS: Source Nasal/Nares
[2022-11-04] MEDS: LORazepam 2 MG/ML VIAL 1 MG IVP (12:31)
[2022-11-04 12:32] LABS: Abs Immature Grans 0.06 10^3/uL (0.0-0.06); Absolute Basophil Count 0.05 10^3/uL (0.0-0.2); Absolute Eosinophil Count 0.22 10^3/uL (0.0-0.7); Absolute Lymphocyte Count 2.27 10^3/uL (1.2-3.4); Absolute Monocyte Count 1.24 10^3/uL (0.1-0.8); Absolute Neutrophil Count 6.45 10^3/uL (1.2-6.7); BE (Venous) 0 mmol/L (-2-3); Basophils % 0.5; Eosinophils % 2.1; HCO3 (Venous) 25 mmol/L (23-28); HCT 40.2 % (40.0-50.0); HGB 13.8 g/dL (13.5-17.5); Immature Grans % 0.6; Lymphocytes % 22.1; MCH 31.8 pg (27.0-33.0); MCHC 34.3 % (32.0-36.0); MCV 93 fL (80-95); MPV 8.5 fL (8.0-11.0); Monocytes % 12.1; Neutrophils % 62.6; O2 Sat (Venous) 75 %; Platelet Count 459 10^3/uL (130-400); RBC 4.34 10^6/uL (4.36-5.78); RDW 12.8 % (11.8-14.1); RDW-SD 44.1 fL; TCO2 (Venous) 22 mmol/L (24-29); WBC 10.29 10^3/uL (4.4-10.8); pCO2 (Venous) 38 mmHg (41-51); pH (Venous) 7.42 (7.31-7.41); pO2 (Venous) 38 mmHg
[2022-11-04] MEDS: Omnipaque 350 MG/ML 100 ML BTL IJ (12:52)
[2022-11-04 12:53] LABS: ALT 37 U/L (16-63); AST 28 U/L (15-37); Albumin 4.1 g/dL (3.4-5.0); Alkaline Phosphatase 71 U/L (46-116); Anion Gap 12.1 mmol/L (3-11); BUN 15 mg/dL (7-18); Bilirubin, Total 0.3 mg/dL (0.2-1.0); CO2 24.9 mmol/L (21.0-32.0); CREATININE 0.8 mg/dL (0.70-1.30); Calcium 9.1 mg/dL (8.5-10.1); Chloride 102 mmol/L (98-107); Estimated GFR 117.63 (mL/min/1.73m2); Glucose 84 mg/dL (74-106); Magnesium 1.9 mg/dL (1.8-2.4); Potassium 3.8 mmol/L (3.5-5.1); Sodium 139 mmol/L (136-145); TSH (W/Ref FT4) 1.08 uIU/mL (0.36-3.74); Total Protein 7.8 g/dL (6.4-8.2); Troponin I < 50 ng/L (<or=60)
[2022-11-04] MEDS: Normal Saline - Diluent 50 ML VIAL IJ (12:53)
[2022-11-04] MEDS: Normal Saline Flush 10 ML SYR IVP (12:53)
--- NOTE | 2022-11-04 13:50 | DI.VRAD_ITS ---
PROCEDURE INFORMATION: Exam: CTA Chest With Contrast Exam date and time: 11/04/2022 12:54 PM Age: 37 years old Clinical indication: Shortness of breath TECHNIQUE: Imaging protocol: Computed tomographic angiography of the chest with contrast. Exam focused on the arteries. 3D rendering (Not supervised by radiologist): MIP and/or 3D reconstructed images were created by the technologist. Radiation optimization: All CT scans at this facility use at least one of these dose optimization techniques: automated exposure control; mA and/or kV adjustment per patient size (includes targeted exams where dose is matched to clinical indication); or iterative reconstruction. Contrast material: OMNIPAQUE 350; Contrast volume: 100 ml; Contrast route: INTRAVENOUS (IV); COMPARISON: Vascular^CTA CHEST (Adult) 12/22/2017 1:30 PM FINDINGS: Pulmonary arteries: No definite intraluminal filling defect or intravascular thrombus identified to suggest acute pulmonary embolus. Aorta: Aorta is nonaneurysmal. Great vessel origins are patent. No acute dissection. Pleura: No significant pleural effusion or pneumothorax Lungs: There is no significant airspace consolidation. There is no evidence of an endobronchial lesion. No suspicious pulmonary parenchymal mass or nodule is identified. Heart: Unremarkable. No cardiomegaly. No pericardial effusion. Lymph nodes: No significant adenopathy Bones/joints: There is no acute bony abnormality. Mild degenerative changes are seen in the spine. Soft tissues: Unremarkable. IMPRESSION: No acute findings. No evidence of acute pulmonary embolus. Dictated and Authenticated by: Wendy Sanchez MD. Ordering:MATTHEW Fink MD
[2022-11-04 13:51] LABS: COVID-19 PCR Negative (Negative)
== END 2022-11-04 14:12 | disposition home or self-care (01) ==
PROVIDERS: Emergency Provider Emergency Medicine; PCP Physician Assistant
DX: R06.02 Shortness of breath (principal); Z87.891 Personal history of nicotine dependence; F41.9 Anxiety disorder, unspecified
CPT/HCPCS: 71275; 76604; 80053; 82805; 87635; 93005; 93308; 96374; 99285; 83735; 84443; 84484; 85025; 93010; 99283; 99284; J2060; J3490

== ENCOUNTER 2022-11-30 10:36 | Emergency (ER) | payer MEDICAID, SELFPAY ==
[2022-11-30 10:42] VITALS: BP 123/52; PULSE 93; RESP 14; TEMP 37.7; O2SAT 97
--- NOTE | 2022-11-30 11:10 | ED.GENADUL_ITS ---
Discharge Plan Discharge Details Chief Complaint: RashLesion Primary Care Provider: Rommel Clakre ED Provider: Wendy Pardo Home Meds and New Rx's Prescriptions: No Action ibuprofen 200 mg Capsule 200 mg PO PRN PRN Hold Instructions: Until Steroids are completed amoxicillin-pot clavulanate 875-125 mg tablet 1 tab PO BID Patient Comments: 1 tablet by mouth twice a day HPI General Date/Time Provider Initiated Documentation: 11/30/22 10:39 . HPI Narrative: Patient with cat bite. On Augmentin for 2 days. Brief initial evaluation performed. Patient left prior to starting treatment with plans of returning soon. Related Data Home Medications Medication Instructions Recorded Confirmed ibuprofen 200 mg capsule 200 mg PO PRN PRN 06/26/20 11/30/22 amoxicillin 875 mg-potassium 1 tab PO BID 11/30/22 11/30/22 clavulanate 125 mg tablet Allergies Allergy/AdvReac Type Severity Reaction Status Date / Time No Known Allergies Allergy Unverified 11/30/22 10:47 General Stated Complaint: RashLesion DUSTIN: 3 PFSH All Active Problems Shortness of breath (Acute) Hydrocele (Acute) Social History Smoking/Tobacco Use Status: Former Tobacco Use Smoking risk assessment performed?: Yes Drug use: Daily Substance use type: marijuana Details: Smoke weed every day Housing: apartment Do you feel safe at home: Yes Do you feel safe in your relationship?: Yes Course Vital Signs Vital signs: Vital Signs Temperature 37.7 C H 11/30/22 10:42 Pulse 93 H 11/30/22 10:42 Respiratory Rate 14 11/30/22 10:42 Blood Pressure 123/52 L 11/30/22 10:42 Pulse Oximetry 97 11/30/22 10:42 Temperature 37.7 C H 11/30/22 10:42 Temperature Source Skin 11/30/22 10:42 Pulse 93 H 11/30/22 10:42 Respiratory Rate 14 11/30/22 10:42 Respiratory Effort Normal 11/30/22 10:50 Blood Pressure 123/52 L 11/30/22 10:42 Blood Pressure Position Sitting 11/30/22 10:42 Pulse Oximetry 97 11/30/22 10:42 Oxygen Delivery Method Room Air 11/30/22 10:42 Oxygen Flow Rate 0 11/30/22 10:42 Pain Level 0 11/30/22 10:42 Comment oral temp: 98.1f 11/30/22 10:42
[2022-11-30 16:50] LABS: BUN 16 mg/dL (7-18); CREATININE 0.9 mg/dL (0.70-1.30); Calcium 9.2 mg/dL (8.5-10.1); Estimated GFR 113.51 (mL/min/1.73m2); Glucose 107 mg/dL (74-106); Total Protein 7.9 g/dL (6.4-8.2)
[2022-11-30 16:51] LABS: ALT 21 U/L (16-63); AST 17 U/L (15-37); Albumin 4.1 g/dL (3.4-5.0); Alkaline Phosphatase 59 U/L (46-116); Anion Gap 6.9 mmol/L (3-11); Bilirubin, Total 0.3 mg/dL (0.2-1.0); CO2 29.1 mmol/L (21.0-32.0); Chloride 104 mmol/L (98-107); Potassium 4.2 mmol/L (3.5-5.1); Sodium 140 mmol/L (136-145)
[2022-11-30 16:52] LABS: Abs Immature Grans 0.05 10^3/uL (0.0-0.06); Absolute Basophil Count 0.03 10^3/uL (0.0-0.2); Absolute Monocyte Count 0.96 10^3/uL (0.1-0.8); Absolute Neutrophil Count 8.61 10^3/uL (1.2-6.7); Basophils % 0.3; Eosinophils % 1.2; HCT 37.8 % (40.0-50.0); HGB 12.9 g/dL (13.5-17.5); Immature Grans % 0.4; Lymphocytes % 13.3; MCHC 34.1 % (32.0-36.0); MCV 94 fL (80-95); MPV 9.1 fL (8.0-11.0); Monocytes % 8.5; Neutrophils % 76.3; Platelet Count 448 10^3/uL (130-400); RBC 4.03 10^6/uL (4.36-5.78); RDW 12.5 % (11.8-14.1); RDW-SD 43.6 fL; WBC 11.28 10^3/uL (4.4-10.8)
[2022-11-30 16:53] LABS: Absolute Eosinophil Count 0.13 10^3/uL (0.0-0.7)
[2022-11-30 21:26] LABS: Lab Add On Test DONE
[2022-11-30 21:34] LABS: C-Reactive Protein 1.63 mg/dL (0.0-0.3)
== END 2022-11-30 11:17 | disposition left against medical advice (07) ==
PROVIDERS: Family Medicine; Emergency Provider Emergency Medicine Emergency Medical Services; PCP Physician Assistant
DX: R21 Rash and other nonspecific skin eruption (principal); S61.452A Open bite of left hand, initial encounter; W55.01XA Bitten by cat, initial encounter
CPT/HCPCS: 80053; 87040; 99283; 83605; 85025; 86140; 99282

== ENCOUNTER 2022-11-30 16:00 | Inpatient (IN) | payer MEDICAID, SELFPAY ==
--- NOTE | 2022-11-30 16:15 | NUR.NOTE ---
Nursing Note: much of this patient's documentation was done during downtime. 1330: VS Temp:99.2F, HR 94, RR 18, BP 104/74, spo2 97% 1430: VS Temp: 98.6F, HR 84, RR 14, BP 115/69, spo2 100%
[2022-11-30] MEDS: AMPICILLIN/SULBACTAM 3 GM in Normal Saline 100 ML IVPB ×2 (16:26→21:05)
--- NOTE | 2022-11-30 16:26 | NUR.NOTE ---
Nursing Note: Unasyn was given during downtime at 1325, finished at 1335. Unable to change time in the MAR.
[2022-11-30 17:00] VITALS: BP 101/70; PULSE 77; RESP 18; TEMP 36.8; O2SAT 98
--- NOTE | 2022-11-30 18:00 | NUR.NOTE ---
MRSA swab collected. Patient tolerated procedure well. Sample labeled & taken to the lab. Nursing Note:
--- NOTE | 2022-11-30 18:12 | HPE_ITS ---
Date of service: 11/30/22 Time of Service: 18:12 Assessment and Plan Assessment and plan (1) Cellulitis of hand: Status: Acute Assessment and plan: Secondary to cat bite / scratch of left hand; dorsal base of thumb. Cont Unasyn. He endorsed that the edema of the dorsum of the hand has diminished. PRN acetaminophen for any fever or pain. PRN ketoralac for pain. Blood cultures pending. (2) Cat bite of finger: Status: Acute Assessment and plan: As above. No fluctuance or evidence of abscess. MRSA screen pending. (3) Contact dermatitis: Status: Inactive Assessment and plan: Prednisone 40mg po daily. Topical hydrocortisone for particularly troublesome/pruritic areas. History of Present Illness History of Present Illness Chief Complaint: cellulitis of hand after a cat bite Narrative: This is a healthy 37 yo male that presented to the ED after incurring a cat bite 3 days prior. He was bathing his cat when it bit him. He initially saw what appearred to be a very small, superficial puncture wound. Adjacent to this was also a scratch that the cat inflicted. The night prior to admission he felt warm; did not take a temperature. He was seen in Urgent Care and prescribed Augmentin; he had taken 2 days of the antibiotic when he presented here. He also endorses having poison wil on his extremities, abd and genitalia. He stated that he typically has a contact dermatitis yearly and that last year it required 2 months of steroids before it cleared. He was afebrile. WBC count was mildly elevated at 11.28. CRP elevated at 1.63. He was started on Unasyn in the ED. Review of Systems All systems reviewed & are unremarkable except as noted in HPI and below PFSH All Active Problems (Updated 11/30/22 @ 18:13 by Sharif Chang MD) Cat bite of finger (Acute) Cellulitis of hand (Acute) Shortness of breath (Acute) Hydrocele (Acute) Social History Smoking/Tobacco Use Status: Former Tobacco Use Smoking risk assessment performed?: Yes Drug use: Daily Substance use type: marijuana Details: Smoke weed every day Housing: apartment Do you feel safe at home: Yes Do you feel safe in your relationship?: Yes Meds Allergies and Home Medications Allergies Allergy/AdvReac Type Severity Reaction Status Date / Time No Known Allergies Allergy Unverified 11/30/22 10:47 Home Medications Medication Instructions Recorded Confirmed Type ibuprofen 200 mg capsule 200 mg PO PRN PRN 06/26/20 11/30/22 History amoxicillin 875 mg-potassium 1 tab PO BID 11/30/22 11/30/22 History clavulanate 125 mg tablet Exam Narrative Exam Narrative: Lying in bed. NAD. Pleasant, cooperative. Const General: healthy appearing and well developed Nutritional Appearance: average body habitus Orientation: alert and oriented x3 HENMT Ears: hearing grossly normal bilaterally Eyes General: appearance normal, both eyes and all related structures Sclera: sclerae normal Neck Neck: full ROM and supple Resp Effort & Inspection: normal respiratory effort Auscultation: clear to auscultation bilaterally Cardio Rate: regular rate Rhythm: regular rhythm Heart Sounds: S1 normal, S2 normal and no murmurs GI Inspection: normal to inspection Palpation: soft and nontender Skin Rashes: rashes noted (Scattered erythematous papular rash on extremities, periumbilical abd.) Wounds: wounds noted [place] base of left thumb with small punture wound and adjacent superficial scratch; no drainage. Mildly tender. Dusky erythma of lateral dorsal left hand Neuro General: no focal motor deficits Motor: no tremors Extrem General: no pedal edema and no calf tenderness Psych Appearance: grossly normal Mood: congruent mood Affect: normal affect Results Labs 12/01/22 06:20 Last Vital Signs Temp 36.8 C 11/30/22 17:00 Pulse 77 11/30/22 17:00 Resp 18 11/30/22 17:00 BP 101/70 11/30/22 17:00 Pulse Ox 98 11/30/22 17:00 Time Spent Time spent with Patient: 40-54 minutes Time was spent: preparing to see the patient(eg.review tests), obtaining and/or reviewing separately otained hiistory, ordering medications,tests, procedures, referring, communicating with other health patient care representative, indepentently interpreting results, counseling the patient and care coordination
[2022-11-30] MEDS: Nicotine 2 MG GUM CH ×2 (20:55→22:30)
[2022-11-30] MEDS: predniSONE 20 MG TAB 40 MG PO (21:02)
[2022-11-30] MEDS: Hydrocortisone 1% CR 30 GM TUBE TP (22:29)
[2022-11-30 23:45] VITALS: BP 115/72; PULSE 77; RESP 16; TEMP 37.1; O2SAT 98
[2022-12-01] MEDS: AMPICILLIN/SULBACTAM 3 GM in Normal Saline 100 ML IVPB ×2 (02:14→08:02)
[2022-12-01 03:22] VITALS: BP 114/62; PULSE 69; RESP 16; TEMP 36.3; O2SAT 99
[2022-12-01 06:25] VITALS: BP 128/75; PULSE 74; RESP 16; TEMP 36.8; O2SAT 99
[2022-12-01 06:35] LABS: Abs Immature Grans 0.03 10^3/uL (0.0-0.06); Absolute Basophil Count 0.02 10^3/uL (0.0-0.2); Absolute Eosinophil Count 0.01 10^3/uL (0.0-0.7); Absolute Lymphocyte Count 0.85 10^3/uL (1.2-3.4); Absolute Monocyte Count 0.57 10^3/uL (0.1-0.8); Absolute Neutrophil Count 6.55 10^3/uL (1.2-6.7); Basophils % 0.2; Eosinophils % 0.1; Immature Grans % 0.4; Lymphocytes % 10.6; MCH 32.2 pg (27.0-33.0); MCHC 34.1 % (32.0-36.0); MCV 94 fL (80-95); MPV 8.9 fL (8.0-11.0); Monocytes % 7.1; Neutrophils % 81.6; Platelet Count 410 10^3/uL (130-400); RBC 4.35 10^6/uL (4.36-5.78); RDW 12.4 % (11.8-14.1); RDW-SD 43.3 fL; WBC 8.03 10^3/uL (4.4-10.8)
[2022-12-01 07:27] VITALS: BP 131/70; PULSE 70; RESP 18; TEMP 36.9; O2SAT 98
[2022-12-01] MEDS: predniSONE 20 MG TAB 40 MG PO (08:03)
[2022-12-01] MEDS: Hydrocortisone 1% CR 30 GM TUBE TP (08:03)
[2022-12-01 08:20] LABS: Lab Add On Test DONE
[2022-12-01 08:32] LABS: C-Reactive Protein 1.02 mg/dL (0.0-0.3)
--- NOTE | 2022-12-01 11:52 | DSE_ITS ---
Date of service: 12/01/22 Time of Service: 11:52 DS: Diagnosis Discharge Diagnosis (1) Cellulitis of hand: Status: Acute Asessment and Plan: Resolving. He will resume the Augmentin previously prescribed. (2) Cat bite of finger: Status: Acute Asessment and Plan: No pain or decreased ROM in the left hand / fingers. (3) Contact dermatitis: Status: Inactive Asessment and Plan: Prednisone taper. He should finish the taper to avoid rebound rash/symptoms. Discharge Plan Disposition Patient Disposition: Home Condition: Good Discharge Details Reason For Visit: Cellulitis of Hand. Cat Bite Admit Date/Time: 11/30/22 17:28 Admit Provider: Sharif Chang Attending Provider: Sharif Chang Primary Care Provider: Rommel Clarke Hospital Course Hospital Course: This is a healthy 37 yo male that presented to the ED after incurring a cat bite 3 days prior.? He was bathing his cat when it bit him.? He initially saw what appearred to be a very small, superficial puncture wound.? Adjacent to this was also a scratch that the cat inflicted.? The night prior to admission he felt warm; did not take a temperature.? He was seen in Urgent Care and prescribed Augmentin; he had taken 2 days of the antibiotic when he presented here.? He also endorses having poison wil on his extremities, abd and genitalia.? He stated that he typically has a contact dermatitis yearly and that last year it required 2 months of steroids before it cleared. He was afebrile.? WBC count was mildly elevated at 11.28. CRP elevated at 1.63. He was started on Unasyn in the ED.? See Diagnosis ? PCP follow up in 1-2 weeks. Home Meds and New Rx's Prescriptions: New prednisone 10 mg tablet See Rx Instructions .ROUTE .COMPLEX Qty: 28 0RF Rx Instructions: 40 mg tonight then in the AM begin taper: 40mg po x 1 day, then 30m x 3 days, then 20mg x3 days, then 10mg x 3 days, then 5mg x 3 days. Continued ibuprofen 200 mg Capsule 200 mg PO PRN PRN Hold Instructions: Until Steroids are completed amoxicillin-pot clavulanate 875-125 mg tablet 1 tab PO BID Patient Comments: 1 tablet by mouth twice a day Discharge Instructions Instructions: Contact Dermatitis (ED) Activity:: Activity as Tolerated Equipment/Supplies:: No Equipment Needed Diet:: As Tolerated DS: Summary Time Spent with Patient providing and/or coordinating discharge services: Greater than 30 minutes Status at Discharge Functional status at discharge: independent ambulation Overall status at discharge: patient is back to baseline Mental Status: mental status grossly normal Speech and Movement: speech and movement normal Mood: congruent mood Affect: normal affect Exam Narrative Exam Narrative: Lying in bed. NAD. Pleasant, cooperative. Const General: healthy appearing and well developed Nutritional Appearance: average body habitus Orientation: alert and oriented x3 HENMT Ears: hearing grossly normal bilaterally Eyes General: appearance normal, both eyes and all related structures Sclera: sclerae normal Neck Neck: full ROM and supple Resp Effort & Inspection: normal respiratory effort Auscultation: clear to auscultation bilaterally Cardio Rate: regular rate Rhythm: regular rhythm Heart Sounds: S1 normal, S2 normal and no murmurs GI Inspection: normal to inspection Palpation: soft and nontender Skin General skin exam: erythema (very faint dusky erythema of dorso-lateral left hand) Rashes: rashes noted (Scattered erythematous papular rash on extremities, periumbilical abd.) Wounds: wounds noted Neuro General: no focal motor deficits Motor: no tremors Extrem General: no pedal edema and no calf tenderness Psych Appearance: grossly normal Mental Status: mental status grossly normal Speech and Movement: speech and movement normal Mood: congruent mood Affect: normal affect DS: Data Vitals/I&O Vitals and I&O: Vital Signs Temperature 36.9 C 12/01/22 07:27 Temperature Source Tympanic 12/01/22 07:27 Pulse 70 12/01/22 07:27 Pulse Rhythm Regular 12/01/22 08:00 Respiratory Rate 18 12/01/22 07:27 Respiratory Effort Normal 12/01/22 08:00 Respiratory Depth Normal 12/01/22 08:00 Respiratory Pattern Normal 12/01/22 08:00 Blood Pressure 131/70 12/01/22 07:27 Pulse Oximetry 98 12/01/22 07:27 Oxygen Delivery Method Room Air 12/01/22 07:27 Oxygen Flow Rate 0 12/01/22 07:27 Pain Level 0 12/01/22 07:27 Intake & Output 11/30/22 11/30/22 12/01/22 11:59 23:59 11:59 Intake Total 210 / 210 410 / 410 Output Total 1150 / 1150 Balance 210 / 210 -740 / -740 Weight 71.9 kg Intake: IV 210 / 210 110 / 110 Oral 300 / 300 Output: Urine 1150 / 1150 Other: Urine Color Straw Urine Appearance Clear Clear Urine Odor Normal Comment pt reports he has voided 3 times, since 1800. an unknown amount Voiding Methods Bedside Commode Data Completed and Pending Labs on day of discharge: Labs from last 24 hours 12/01/22 12/01/22 12/01/22 06:20 06:20 06:20 WBC 8.03 RBC 4.35 L Hgb 14.0 Hct 41.0 MCV 94 MCH 32.2 MCHC 34.1 RDW 12.4 Plt Count 410 H MPV 8.9 Immature Gran % 0.4 Neutrophils % 81.6 Lymphocytes % 10.6 Monocytes % 7.1 Eosinophils % 0.1 Basophils % 0.2 Nucleated RBC % 0.0 Absolute Neutrophils 6.55 Absolute Lymphocytes 0.85 L Absolute Monocytes 0.57 Absolute Eosinophils 0.01 Absolute Basophils 0.02 C-Reactive Protein 1.02 H Add-On Test Request DONE 11/30/22 17:45 Nose MRSA Screen - Pending Preliminary micro results at discharge 11/30/22 17:45 MRSA Screen - Pending Nose PFSH All Active Problems Cat bite of finger (Acute) Cellulitis of hand (Acute) Shortness of breath (Acute) Hydrocele (Acute) Social History Smoking/Tobacco Use Status: Former Tobacco Use Smoking risk assessment performed?: Yes Drug use: Daily Substance use type: marijuana Details: Smoke weed every day Housing: apartment Do you feel safe at home: Yes Do you feel safe in your relationship?: Yes Time Spent with Patient Time Spent with Patient: <45 minutes Time was spent: preparing to see the patient(eg.review tests), obtaining and/or reviewing separately otained hiistory, referring, communicating with other health nurse healthcare manager, indepentently interpreting results and counseling the patient
== END 2022-12-01 12:52 | disposition home or self-care (01) | DRG 605 ==
LOC: ER 16:54 → MS 17:02
PROVIDERS: Admitting Provider Family Medicine; Emergency Provider Emergency Medicine Emergency Medical Services; PCP Physician Assistant; Visit Provider Family Medicine
DX: S61.052A Open bite of left thumb without damage to nail, initial encounter (principal); L03.012 Cellulitis of left finger; L23.7 Allergic contact dermatitis due to plants, except food; R06.02 Shortness of breath; Z87.891 Personal history of nicotine dependence; W55.01XA Bitten by cat, initial encounter; W55.03XA Scratched by cat, initial encounter
CPT/HCPCS: 36415; 87081; 96365; 96366; 96375; 99285; 85025; 86140; 99222; 99239; J0295; J7512

== ENCOUNTER 2023-08-31 06:38 | Emergency (ER) | payer MEDICAID, SELFPAY ==
[2023-08-31 06:40] VITALS: BP 129/53; PULSE 89; RESP 18; TEMP 36.4; O2SAT 100
[2023-08-31] MEDS: Tetracaine 0.5% 4 ML BTL (06:51)
[2023-08-31] MEDS: Fluorescein STRIPS 100/BOX 1 MG (06:53)
[2023-08-31] MEDS: Erythromycin Ophth Oint 3.5 GM TUBE OS (07:21)
--- NOTE | 2023-08-31 10:09 | ED.GENADUL_ITS ---
Discharge Plan Disposition Patient Disposition: Home Condition: Stable Discharge Details Clinical Impression: Corneal abrasion, right Primary Care Provider: Rommel Clarke ED Provider: Chance Moctezuma Discharge Instructions Instructions: Corneal Abrasion (ED) Additional Instructions: use erythromycin ointment three times daily for the next 5-7 days. if symptoms aren't improving please return for re-evaluation HPI General Date/Time Provider Initiated Documentation: 08/31/23 06:47 . Limitations to Documentation: no limitations . Information obtained by: patient . HPI Narrative: 38-year-old gentleman without significant past medical history presents for jaye luation of right eye pain. He reports onset of pain yesterday when he was doing some work and he got hit in the face with a branch. He reports some initial soreness, tearing. He reports he flushed his eye aggressively and did not note any foreign body. He reports that he later started rubbing his eye and noted that his eye was tearing quite a bit. He reports pain. He states after rubbing his eye he had a significant increase in his pain. He denies any blurry vision or pain. With movement of the eye Related Data Allergies Allergy/AdvReac Type Severity Reaction Status Date / Time No Known Allergies Allergy Unverified 08/31/23 06:44 General Stated Complaint: EyeProblem DUSTIN: 4 Exam Narrative Exam Narrative: Review of Systems: All systems reviewed & are unremarkable except as noted in HPI and below Well-developed, no acute distress NCAT PERRL, normal conjunctiva No obvious foreign body, there is increased tearing from the right eye. Fluorescein examination performed and uptake noted with a small lesion at 6:00 RRR Unlabored respiratory effort Nondistended abdomen Extremities w/o deformity, no cyanosis, no edema No rashes or lesions. no focal neurologic deficits Appropriate mood and affect Course Vital Signs Vital signs: Vital Signs Temperature 36.4 C L 08/31/23 06:40 Pulse 89 08/31/23 06:40 Respiratory Rate 18 08/31/23 06:40 Blood Pressure 129/53 L 08/31/23 06:40 Pulse Oximetry 100 08/31/23 06:40 Temperature 36.4 C L 08/31/23 06:40 Pulse 89 08/31/23 06:40 Respiratory Rate 18 08/31/23 06:40 Respiratory Effort Normal 08/31/23 06:42 Blood Pressure 129/53 L 08/31/23 06:40 Pulse Oximetry 100 08/31/23 06:40 Pain Level 0 08/31/23 07:25 Medical Decision Making Emergent evaluation of eye pain. Initial differential includes foreign body, allergic conjunctivitis, corneal abrasion. Fluorescein examination confirms small corneal abrasion. Does not involve the visual axis. Patient provided with erythromycin ointment to use at home. Return precautions advised. Follow- up plan discussed. Discharged in good condition. Quality:SDOH Health Related Social Needs: No Data to Display PFSH All Active Problems Corneal abrasion, right (Acute) Cellulitis of hand (Acute) Hydrocele (Acute) Medical History Cat bite of finger Social History Smoking/Tobacco Use Status: Current every day Tobacco Type: smokeless tobacco Smoking risk assessment performed?: Yes Drug use: Daily Substance use type: does not use Housing: apartment Do you feel safe at home: Yes Do you feel safe in your relationship?: Yes
== END 2023-08-31 07:32 | disposition home or self-care (01) ==
PROVIDERS: Emergency Provider Emergency Medicine; PCP Physician Assistant
DX: S05.01XA Injury of conjunctiva and corneal abrasion without foreign body, right eye, initial encounter (principal); F17.290 Nicotine dependence, other tobacco product, uncomplicated; W22.8XXA Striking against or struck by other objects, initial encounter; Y93.H2 Activity, gardening and landscaping; Y92.017 Garden or yard in single-family (private) house as the place of occurrence of the external cause
CPT/HCPCS: 99283

== ENCOUNTER 2024-08-31 01:32 | Emergency (ER) | payer MEDICAID, SELFPAY ==
[2024-08-31 01:33] VITALS: BP 145/80; PULSE 79; RESP 16; TEMP 36.9; O2SAT 99
[2024-08-31 01:39] VITALS: BP 145/80; PULSE 79; RESP 16; TEMP 36.9; O2SAT 99
--- NOTE | 2024-08-31 01:47 | ED.GENADUL_ITS ---
Discharge Plan Disposition Patient Disposition: Home Condition: Good Discharge Details Chief Complaint: DentalOral Clinical Impression: Pain, dental, Pulpitis Primary Care Provider: Rommel Clarke ED Provider: Constance Hernandez Home Meds and New Rx's Prescriptions: No Action No Known Home Meds Discharge Instructions Instructions: Dental Pain ED Additional Instructions: Call your dentist in the morning to schedule an appointment to be seen as soon as possible. A dental list has also been provided. Return to the emergency department for new or worsening symptoms including fever, inability to open your mouth, swelling of your face/neck/tongue, neck pain, difficulty breathing, or if you have any other concerns. HPI General Mode of arrival: ambulatory . Date/Time Provider Initiated Documentation: 08/31/24 01:38 . Limitations to Documentation: no limitations . Information obtained by: patient . HPI Narrative: 39yo M presenting with dental pain. Cracked tooth on lower right several months ago, has had mild pain since then. For the past two days pain has been much worse, constant, keeping him awake. Took 200mg of ibuprofen at home about two hours without improvement. Worse with touch/chewing. No fevers. No facial swelling. No difficulty swallowing. Otherwise in his usual state of health. Related Data Home Medications ?Medication ?Instructions ?Recorded ?Confirmed Unknown [No Known Home Meds] 08/31/24 08/31/24 Allergies Allergy/AdvReac Type Severity Reaction Status Date / Time No Known Allergies Allergy Unverified 08/31/24 01:39 General Stated Complaint: DentalOral DUSTIN: 4 Review of Systems Narrative: see HPI Exam Narrative Exam Narrative: General: Alert, well appearing, well nourished. Head: Normocephalic, atraumatic. No facial swelling or tenderness. Neck: Trachea midline, ?Neck supple. Anterior neck non-tender. ENT: ?MMM.? No oropharygeal lesions or exudate. Uvula midline. #29 carious, tender to percussion. No gingival erythema or swelling. No abscess. Cardiac: ?No cyanosis. Resp: No respiratory distress. Speaking in full sentences. Abd: ?Non-distended, Extremities: ?No deformities.? No peripheral edema. Neurologic: GCS 15. ? Moves all extremities freely against gravity #29 Course Vital Signs Vital signs: Vital Signs Temperature 36.9 C 08/31/24 01:33 Pulse 79 08/31/24 01:33 Respiratory Rate 16 08/31/24 01:33 Blood Pressure 145/80 H 08/31/24 01:33 Pulse Oximetry 99 08/31/24 01:33 Temperature 36.9 C 08/31/24 01:39 Temperature Source Temporal Artery Scan 08/31/24 01:39 Pulse 79 08/31/24 01:39 Respiratory Rate 16 08/31/24 01:39 Blood Pressure 145/80 H 08/31/24 01:39 Blood Pressure Position Sitting 08/31/24 01:39 Pulse Oximetry 99 08/31/24 01:39 Oxygen Delivery Method Room Air 08/31/24 01:39 Oxygen Flow Rate 0 08/31/24 01:33 Pain Level 10 08/31/24 01:39 Medical Decision Making 39yo M presenting with dental pain. Cracked tooth on lower right several months ago, has had mild pain since then. Pain has been worse for the past two days, took 200mg of ibuprofen at home about two hours without improvement. Systemic ally well. Vital signs reassuring on arrival. On exam #29 carious, tender to percussion with no abscess or signs of infection. History and exam not suggestive of sepsis, deep space neck infection. King's, apical/periapcial abscess, buccal space infection; no indication for labs or CT imaging. Will treat pain with tylenol, IM toradol, topical lidocaine. With no signs of i nfection, would not do antibiotics at this time. Advised dental followup; dental list provided. Discharged home; discharge instructions and return precautions were reviewed with patient who verbalized understanding. All questions were answered. Quality:SDOH Health Related Social Needs: No Data to Display [facility] All Active Problems (Updated 08/31/24 @ 01:59 by Constance Hernandez MD) Pulpitis (Acute) Pain, dental (Acute) Cellulitis of hand (Acute) Hydrocele (Acute) Medical History Cat bite of finger Social History Smoking/Tobacco Use Status: Current every day Tobacco Type: smokeless tobacco Smoking risk assessment performed?: Yes Drug use: Daily Substance use type: does not use Housing: apartment Do you feel safe at home: Yes Do you feel safe in your relationship?: Yes
[2024-08-31] MEDS: Ketorolac 15 MG/ML VIAL IM (01:59)
[2024-08-31] MEDS: Acetaminophen 500 MG TAB 1000 MG PO (02:00)
[2024-08-31] MEDS: Benzocaine 20% Gel 30 GM JAR MM (02:07)
== END 2024-08-31 02:10 | disposition home or self-care (01) ==
PROVIDERS: Emergency Provider Student in an Organized Health Care Education/Training Program; PCP Physician Assistant
DX: K08.89 Other specified disorders of teeth and supporting structures (principal); K04.01 Reversible pulpitis; F17.290 Nicotine dependence, other tobacco product, uncomplicated
CPT/HCPCS: 96372; 99284; 99283; J1885